=== PATIENT | female | born 1940 | race Caucasian/White ===

== ENCOUNTER 2017-05-30 07:37 | Day surgery (SDC) | payer OTHER, MEDICAID ==
[2017-05-30] MEDS ORDERED: D5 LR 1000 ML 1,000 ML IV ONE (07:41)
[2017-05-30] MEDS ORDERED: XYLOCAINE 2 % (PLAIN) ONE (08:19)
[2017-05-30] MEDS ORDERED: DIPRIVAN VIAL 20 ML ONE (08:19)
[2017-05-30 09:23] VITALS: BP 145/66
--- NOTE | 2017-05-30 09:26 | OR.GENERIC ---
Post-Op Note Generic - Post-Op Note Operative Report: Endoscopy Report May 30, 2017 Pre-Operative Diagnosis: Epigastric pain. Post-Operative Diagnosis: 1. Mild gastritis. 2. Small hiatal hernia. 3. Gastroesophageal reflux disease. Procedure: Esophagogastroduodenoscopy with biopsies (cold biopsy forceps). Surgeon: Chano Culp MD. Home Therapy Clinician: Duran Staley CRNA. Specimen(s): 1. Antrum. 2. GE junction. Estimated blood loss: Minimal. Complications: None. Summary: The patient is a 77 year old female who presented with epigastric pain. The patient was offered esophagogastroduodenoscopy. The risk and benefits of the procedure including difficulty with anesthesia, bleeding, infection, as well as perforation were discussed with the patient. The patient understood these risks and requested the procedure. On May 30, 2017, the patient was brought to the endoscopy suite. A time out was performed verifying the patient and the procedure. A bite block was inserted. After satisfactory induction of monitored anesthesia care, an endoscope was advanced through the oropharynx, slowly through the esophagus, and into the stomach. The stomach was insufflated. Mild gastritis was seen. No ulcers or erosions were seen. The scope was maneuvered into the duodenum. No inflammation, ulcers, or erosions were seen in the duodenum. The scope was brought back into the stomach and retroflexed. A small hiatal hernia was noted. The scope was straightened and then slowly withdrawn into the esophagus. Evidence of mild gastroesophageal reflux disease was seen. Biopsies were taken at the GE junction using cold biopsy forceps and sent to pathology. The scope was brought back into the stomach and insufflation evacuated. The scope was withdrawn and the procedure terminated. The patient was awakened and taken to the recovery room in stable condition. There were no complications.
== END 2017-05-30 09:24 | disposition home or self-care (01) ==
LOC: SURG1 07:37
PROVIDERS: ATTEND Student in an Organized Health Care Education/Training Program
PROC: 0DJ08ZZ Inspection of Upper Intestinal Tract, Via Natural or Artificial Opening Endoscopic (ICD-10-PCS; principal; 2017-05-30 08:30)
PROC: 0DB48ZX Excision of Esophagogastric Junction, Via Natural or Artificial Opening Endoscopic, Diagnostic (ICD-10-PCS; principal; 2017-05-30 08:30)
PROC: 0DB68ZX Excision of Stomach, Via Natural or Artificial Opening Endoscopic, Diagnostic (ICD-10-PCS; principal; 2017-05-30 08:30)
DX: R10.13 Epigastric pain (principal); K29.60 Other gastritis without bleeding; K44.9 Diaphragmatic hernia without obstruction or gangrene; K21.9 Gastro-esophageal reflux disease without esophagitis
CPT/HCPCS: 99100; A4217; J2001; J3490; J7120

== ENCOUNTER 2019-01-26 10:56 | Inpatient (IN) ==
[2019-01-26] MEDS: HEMOCYTE-PLUS PO SCH (21:15)
[2019-01-26] MEDS: COLACE CAP 100 MG PO SCH (21:15)
[2019-01-26] MEDS: MILK OF MAGNESIA PO SCH (21:15)
[2019-01-26] MEDS: ELIQUIS PO SCH (21:17)
[2019-01-27 05:15] VITALS: BMI 23.0
[2019-01-27 06:25] LABS: BASOPHILS % (AUTO) 0.4 % (0.2-1.0); EOSINOPHILS # (AUTO) 0.1 x10^3/uL (0.0-0.2); HEMATOCRIT 30.5 % (36.0-47.0); HEMOGLOBIN 10.4 g/dL (12.0-16.0); LYMPHOCYTES # (AUTO) 2.2 X10^3/uL (1.3-2.9); LYMPHOCYTES % (AUTO) 24.4 % (21.0-51.0); MEAN CORPUSCULAR HEMOGLOBIN 31.9 pg (27.0-34.0); MEAN CORPUSCULAR HGB CONC 34.1 g/dL (33.0-35.0); MEAN CORPUSCULAR VOLUME 93.6 fL (80.0-100.0); MONOCYTES # (AUTO) 0.9 x10^3/uL (0.3-0.8); MONOCYTES % (AUTO) 10.2 % (0.0-13.0); NEUTROPHILS # (AUTO) 5.7 x10^3/uL (2.2-4.8); PLATELET COUNT 233 X10^3/uL (150.0-450.0); RED BLOOD COUNT 3.26 X10^6/uL (3.5-5.4); RED CELL DISTRIBUTION WIDTH 14.6 % (11.6-16.5); WHITE BLOOD COUNT 8.9 X10^3/uL (3.6-10.0)
[2019-01-27 06:42] LABS: ALANINE AMINOTRANSFERASE 8 Units/L (12-78); ALBUMIN 2.1 g/dL (3.4-5.0); ALKALINE PHOSPHATASE 53 Units/L (46-116); ASPARTATE AMINO TRANSFERASE 20 Units/L (15-37); BLOOD UREA NITROGEN 12 mg/dL (7-18); CALCIUM 8.4 mg/dL (8.5-10.1); CARBON DIOXIDE 28.5 mmol/L (21-32); CHLORIDE 101 mmol/L (98-107); COR CA(FOR HYPOALB) 9.9 mg/dL (8.5-10.1); SODIUM 136 mmol/L (136-145); eGFR NON BLACK RACES > 60 (>60)
[2019-01-27] MEDS: HEMOCYTE-PLUS PO SCH ×2 (09:31→20:46)
[2019-01-27] MEDS: COLACE CAP 100 MG PO SCH ×2 (09:31→20:46)
[2019-01-27] MEDS: ELIQUIS PO SCH ×2 (09:32→20:46)
[2019-01-27] MEDS: MILK OF MAGNESIA PO SCH ×2 (09:32→20:47)
[2019-01-27] MEDS: COZAAR PO SCH (14:31)
--- NOTE | 2019-01-27 16:12 | PT/OTEVAL ---
PT/OT OBJECTIVES - HISTORY Prescription: PT Evaluation Diagnosis: S/P L FRANCESCA Precautions: TTWB to LLE, no adduction to hip per MD, fall risk PMH: PMHX includes the following but are not limited to: S/P L FRANCESCA revision, OA, HTN, GERD without esophagitis, chronic constipation, Hx of syncope Prior Level of Function: Independent - COGNITION Mental Status: Alert, Oriented, Name, Place Communication Status: Verbal Ability to Follow Directions: 3 Step - PAIN Right Shoulder Pain Scale: Moderate (5-6) - BED MOBILITY Rolling: Independent Scooting: Independent Bridging: Independent - TRANSFERS Supine to Sit: Independent Sit to Stand: Moderate Safety (requires cues for:): Weight Bearing Precaution, Hip Precautions Safety Comment: TTWB to LLE, no hip adduction per MD, fall risk - BALANCE Dynamic Sitting: Good Standing: Fair Static Sitting: Good Standing: Fair - NEUROMOTOR/SENSATION Fred. Upper Ext Sensation: WFL Coordination: WFL Fred. Lower Ext Sensation: WFL Coordination: WFL Proprioception: WFL - ROM Bilateral LE ROM: WFL Muscle Tone: WFL - STRENGTH Bilateral LE Strength Number: 3 Other comment: 3/5 -> 3+/5 grossly graded Bilateral UE Strength Number: 3 Other comment: 3-/5 - GAIT Pt. ambulates how many feet?: 30 (using a FWW) Amount of assistance required: Moderate Amount of Assistance Required: Moderate Type of Assistive Device: Rolling Walker PT/OT ASSESSMENT - PT Problem List: Decreased Bed Mobility, Decreased Transfers, Decreased Gait, Decreased Balance, Decreased Safety, Decreased LE Strength - PT GOALS Short Term Goals Days: 10x Transfers: pt. will require Supv./Touch A in sit <-> stand and bed <-> Chair transfers Gait: pt. will walk for > 20 ft. in Supv./Touch A using a FWW and TTWB to LLE Balance: pt. will increase standing balance to G-/F+ (S/D) ROM/Strength: pt. will increase BLE muscle strength to 4-/5 -> 4/5 grossly graded. Nursing Home Goals Days: 20x Transfers: pt. will be Independent in sit <-> stand and bed <-> Chair transfers Gait: pt. will walk for > 40 ft. I -> set/clean-up A using FWW, TTWB LLE Balance: pt. will increase standing balance to G/G- (S/D) ROM/Strength: pt. will increase BLE muscle strength to 4/5 -> 4+/5 grossly graded. - PATIENT GOALS Patient/Family Goals: to be Independent and return to PLOF Goals Discussed with Patient/Family: Yes Rehabilitation Potential: good Justification for Potential: Independent in PLOF Weakness and Barriers: None - PLAN Suggested Treatment Plan: Therapeutic Activity, Gait Training, Neuro Re- education, Therapeutic Ex with HEP, Patient Education - FREQUENCY AND DURATION PT: 6x./wk. x hospital stay Expected Continuation of Care at Discharge: Determined on Progress Anticipated Equipment Needs: FWW
--- NOTE | 2019-01-27 18:52 | PT/OTEVAL ---
PT/OT OBJECTIVES - HISTORY Prescription: OT consult Diagnosis: s/p L FRANCESCA Precautions: TDWB, hip precautions PMH: PMHx: HTN. Per pt's report L hip repair. Prior Level of Function: Independent Other, comment: Pt reported being independent in all areas of self care tasks, transfers. Other: Pt reported living alone, and is independent in all areas of self care tasks, trasnfers and functional mobility using rollator. Pt performs own laundry, cooks her own meals. Per pt, she had issues with balance causing falls even in the past. Pt has an elevated toilet seat, RW and transport chair at home. Pt has 4 steps and moses with bilateral hand rails as primary access to home. Pt had a fall resulting to L hip fx. - COGNITION Mental Status: Alert, Oriented, Name, Date, Place, Purpose Communication Status: Verbal Ability to Follow Directions: 3 Step Memory Loss: None - PAIN Right Shoulder Pain Scale: Moderate (5-6) Left Hip Pain Scale: Severe (7-8) Comments: when in standing/during transitions - TRANSFERS Supine to Sit: Not Tested Sit to Stand: Minimal Sit or Stand Pivot: Minimal Safety (requires cues for:): Weight Bearing Precaution, Hip Precautions, Hand Placement Precaution Safety Comment: Pt requires max verbal cues to observe TDWB precautions on LLE. - ADL'S Feeding: Setup Grooming: Minimum Upper Body ADL: Minimum Lower Body ADL: Maximum Toileting: Maximum Toileting Comment: max A with perineal hygiene, min A with transfers - BALANCE Dynamic Sitting: Good Standing: Fair Static Sitting: Good Standing: Fair - NEUROMOTOR/SENSATION Fred. Upper Ext Sensation: WFL Coordination: WFL Proprioception: WFL Fred. Lower Ext Sensation: WFL Coordination: WFL Proprioception: WFL - HAND DOMINANCE Extremity Function: Hand Dominance: Right - ROM Bilateral UE ROM: Impaired Comment: impaired on R shoulder - STRENGTH Bilateral UE Strength Number: 3 Other comment: 3-/5 on RUE; 3/5 on LUE Bilateral LE Strength Number: 3 Other comment: 3/5 -> 3+/5 grossly graded PT/OT ASSESSMENT - OT Problem List: Decreased Mobility ADL's, Decreased Safety Aware, Decreased Dressing, Decreased Bathing, Decreased Grooming, Decreased UE Strength, Other Other, comment: decreased toileting, decreased FAT - PT GOALS Short Term Goals Days: 10x Transfers: pt. will require Supv./Touch A in sit <-> stand and bed <-> Chair transfers Gait: pt. will walk for > 20 ft. in Supv./Touch A using a FWW and TTWB to LLE Balance: pt. will increase standing balance to G-/F+ (S/D) ROM/Strength: pt. will increase BLE muscle strength to 4-/5 -> 4/5 grossly graded. [facility] Goals Days: 20x Transfers: pt. will be Independent in sit <-> stand and bed <-> Chair transfers Gait: pt. will walk for > 40 ft. I -> set/clean-up A using FWW, TTWB LLE Balance: pt. will increase standing balance to G/G- (S/D) ROM/Strength: pt. will increase BLE muscle strength to 4/5 -> 4+/5 grossly graded. - OT GOALS Short Term Goals Days: 10 days Mobility for ADL's: Pt will perform toileting tasks with supv using AD and 100% adherence to WB Safety Awareness: Pt will be educated with TDWB prec and hip precautions on LLE. Dressing: Pt will perform UB/LB dressing with supv using AD/AEs as needed. Bathing: Pt will perform UB/LB bathing with supv using AD/AEs as needed. Grooming: Pt will perform grooming/oral hyiene with supv at sink level. Upper Ext. Strength/Use: Pt will improve strength to 3+/5 on BUEs. Other: Pt will demo F FAT during ADLs/transfers. Appeals Specialist Goals Days: 20 days Mobility for ADL's: Pt will perform toileting tasks I using AD and 100% adherence to WB Safety Awareness: Pt will demo 100% carryover of TDWB prec and hip precautions on LLE c ADLs. Dressing: Pt will perform UB/LB dressing I using AD/AEs as needed. Bathing: Pt will perform UB/LB bathing I using AD/AEs as needed. Grooming: Pt will perform grooming/oral hyiene I at sink level. Upper Ext. Strength/Use: Pt will improve strength to +/5 on BUEs. Other: Pt will demo G FAT during ADLs/transfers. - PATIENT GOALS Patient/Family Goals: To improve strength for increased I participation with ADLs/transfers. Goals Discussed with Patient/Family: Yes Rehabilitation Potential: Good Justification for Potential: High PLOF, good motivation/participation, G family/CG support. Weakness and Barriers: Pain - PLAN Suggested Treatment Plan: Therapeutic Activity, Self Care Training, Therapeutic Ex with HEP, Patient Education - FREQUENCY AND DURATION OT: 5x/wk for 10 days Expected Continuation of Care at Discharge: Determined on Progress
[2019-01-27] MEDS: LIPITOR TAB 40 MG PO SCH (20:46)
[2019-01-28] MEDS: TYLENOL 325 MG TAB PO PRN (01:52)
[2019-01-28] MEDS: ELIQUIS PO SCH ×2 (09:16→21:44)
[2019-01-28] MEDS: MILK OF MAGNESIA PO SCH ×2 (09:16→21:48)
[2019-01-28] MEDS: COLACE CAP 100 MG PO SCH ×2 (09:18→21:43)
[2019-01-28] MEDS: COZAAR PO SCH (09:18)
[2019-01-28] MEDS: HEMOCYTE-PLUS PO SCH ×2 (09:19→21:43)
[2019-01-28] MEDS ORDERED: ZOFRAN TAB 4 MG PO PRN (14:44)
[2019-01-28] MEDS: LIPITOR TAB 40 MG PO SCH (21:43)
[2019-01-29] MEDS: TYLENOL 325 MG TAB PO PRN ×2 (02:50→15:26)
[2019-01-29] MEDS: COZAAR PO SCH (08:33)
[2019-01-29] MEDS: ELIQUIS PO SCH ×2 (08:35→22:04)
[2019-01-29] MEDS: COLACE CAP 100 MG PO SCH ×2 (08:35→22:05)
[2019-01-29] MEDS: HEMOCYTE-PLUS PO SCH ×2 (08:35→22:03)
[2019-01-29] MEDS: MILK OF MAGNESIA PO SCH ×2 (08:37→22:05)
[2019-01-29 14:31] LABS: BASOPHILS % (AUTO) 0.4 % (0.2-1.0); EOSINOPHILS # (AUTO) 0.2 x10^3/uL (0.0-0.2); EOSINOPHILS % (AUTO) 2.2 % (0.9-2.9); HEMATOCRIT 31.2 % (36.0-47.0); HEMOGLOBIN 10.6 g/dL (12.0-16.0); LYMPHOCYTES # (AUTO) 1.4 X10^3/uL (1.3-2.9); LYMPHOCYTES % (AUTO) 14.4 % (21.0-51.0); MEAN CORPUSCULAR HEMOGLOBIN 32.1 pg (27.0-34.0); MEAN CORPUSCULAR VOLUME 94.3 fL (80.0-100.0); MONOCYTES # (AUTO) 1.1 x10^3/uL (0.3-0.8); MONOCYTES % (AUTO) 11.3 % (0.0-13.0); NEUTROPHILS % (AUTO) 71.7 % (42.0-75.0); PLATELET COUNT 349 X10^3/uL (150.0-450.0); RED BLOOD COUNT 3.31 X10^6/uL (3.5-5.4); RED CELL DISTRIBUTION WIDTH 14.5 % (11.6-16.5); WHITE BLOOD COUNT 9.8 X10^3/uL (3.6-10.0)
[2019-01-29 14:41] LABS: ALANINE AMINOTRANSFERASE 9 Units/L (12-78); ALBUMIN 2.3 g/dL (3.4-5.0); ALKALINE PHOSPHATASE 58 Units/L (46-116); ASPARTATE AMINO TRANSFERASE 16 Units/L (15-37); BLOOD UREA NITROGEN 20 mg/dL (7-18); CALCIUM 8.5 mg/dL (8.5-10.1); CARBON DIOXIDE 29.2 mmol/L (21-32); CHLORIDE 99 mmol/L (98-107); COR CA(FOR HYPOALB) 9.9 mg/dL (8.5-10.1); COR NA(FOR HYPERGLY) 135 mmol/L (136-145); CREATININE 0.79 mg/dL (0.55-1.02); SODIUM 135 mmol/L (136-145); TOTAL PROTEIN 6.7 g/dL (6.4-8.2); eGFR NON BLACK RACES > 60 (>60)
--- NOTE | 2019-01-29 21:42 | DR.UPDATE ---
H&P Update History and Physical Update: History and Physical reviewed and patient examined. Changes noted: Yes with the following: IS A 78 YEAR OLD PATIENT OF OURS WHO HAS RECENTLY UNDERGONE A REVISION OF LEFT TOTAL HIP ARTHROPLASTY DUE TO A FALL. SURGICAL PROCEDURE WAS PERFORMED AT [facility] BY ON 01/22/19. SHE WAS TRANSFERRED HER FOR SWINGBED STATUS FOR PHYSICAL THERAPY. PAST MEDICAL HISTORY INCLUDES HYPERLIPIDEMIA, HTN, GERD, ANEMIA, CHOLECYSTECTOMY, AND JOINT REPLACEMENT. THE DAY PRIOR TO TRANSFER, SHE RECEIVED TWO UNITS OF PACKED RED BLOOD CELLS DUE TO ANEMIA. ON ARRIVAL, SHE IS ALERT AND ORIENTED. SHE REPORTS MILD LEFT HIP PAIN. ON ARRIVAL, VITALS WERE 97.9-91-18-95%-196/82. THERE ARE LUIS NOTED TO BE INTACT TO THE LEFT HIP. NO SIGNS OR SX INFECTION NOTED. SHE REQUIRES MINIMAL ASSISTANCE WITH ADLs. ORTHOPEDIC SURGEON ORDERED TOUCH DOWN WEIGHT BEARING. ON ADMISSION, HER HOME MEDS WERE RESTARTED, WHICH INCLUDES OXYCODONE 10MG PO Q12HR FOR PAIN RELIEF AND ELIQUIS 2.5MG PO BID. WE WILL OBTAIN AM LABS AND HAVE PHYSICAL THERAPY EVALUATE PATIENT. OTHERWISE, WE WILL CONTINUE TO MONITOR.
--- NOTE | 2019-01-29 22:01 | PCM.PROG ---
Progress Note - Progress Note for Day of Date of Exam: 01/29/19 - Subjective Subjective: IS SWINGBED STATUS FOR PHYSICAL THERAPY DUE TO REVISION OF LEFT TOTAL HIP ARTHROPLASTY. TODAY, SHE IS ALERT AND ORIENTED, LYING IN BED ON MORNING ROUNDS. SHE DENIES COMPLAINTS THIS MORNING. ON EXAMINATION, HEART IS REGULAR IN RATE AND RHYTHM. BILATERAL LUNGS ARE NOTED WITH DIMINISHED LUNG SOUNDS THROUGHOUT. ABDOMEN IS ROUND, SOFT, AND NON-TENDER WITH NORMAL BOWEL SOUNDS NOTED IN ALL QUADRANTS. THERE IS A DRESSING NOTED TO LEFT HIP. DRESSING IS DRY AND INTACT WITH NO SIGNS OR SX INFECTION NOTED. HER VITALS THIS MORNING ARE: 97.8-70-18-97%-130/61. LABS WERE OBTAINED. ABNORMAL LAB VALUES INCLUDE THE FOLLOWING: RBC 3.31, HGB 10.6, HCT 31.2, SODIUM 135, BUN 20, GLUCOSE 119, TOTAL BILI 1.10, ALT 9, ALBUMIN 2.3. PHYSICAL THERAPY REPORTS THAT PATIENT IS AMBULATING WELL WITH WALKER AND ONE PERSON ASSISTANCE. WE WILL CONTINUE WITH THERAPY AND CURRENT PLAN OF CARE TODAY. OTHERWISE, WE WILL FOLLOW UP WITH AM LABS AND CONTINUE TO MONITOR. - Past Medical Family Social History Past Med/Fam/Surg Hx: No changes since H&P Allergies: Allergies No Known Allergies Allergy (Verified 12/06/18 09:29) - Review of Systems ROS: No change since H&P - Vital Signs and I&O's Vital Signs: Temperature 97.8 F Pulse Rate [Apical] 70 Pulse Rate 85 Respiratory Rate 18 Blood Pressure [Right Arm] 123/58 Blood Pressure [Left Arm] 130/61 Blood Pressure 182/76 O2 Sat by Pulse Oximetry 97 Intake and Output: Intake & Output 01/27/19 01/28/19 01/29/19 01/30/19 11:59 11:59 11:59 11:59 Intake Total 1100 / 1100 1460 / 1460 1620 / 1620 620 / 620 Balance 1100 / 1100 1460 / 1460 1620 / 1620 620 / 620 - Physical Exam Oriented: Normal Eyes: Normal Ear: Normal Nose: Normal Throat: Normal Respiratory: Generalized, Diminished Cardiovascular: Normal : Normal Auscultation: Bowel Sounds: Normal Palpation: Normal Tenderness: Normal Skin: Wound (LEFT HIP SURGICAL WOUND ) Musculoskeletal: Left, Hip, Leg, Swelling, Tender Psychiatric: Normal Mood Description: Calm Affect: Normal Speech Pattern: Clear, Appropriate - Laboratory and Diagnostics Result Diagrams: 01/29/19 14:20 01/29/19 14:20 Labs: Laboratory WBC 9.8 X10^3/uL (3.6-10.0) 01/29/19 14:20 RBC 3.31 X10^6/uL (3.5-5.4) L 01/29/19 14:20 Hgb 10.6 g/dL (12.0-16.0) L 01/29/19 14:20 Hct 31.2 % (36.0-47.0) L 01/29/19 14:20 MCV 94.3 fL (80.0-100.0) 01/29/19 14:20 MCH 32.1 pg (27.0-34.0) 01/29/19 14:20 MCHC 34.0 g/dL (33.0-35.0) 01/29/19 14:20 RDW 14.5 % (11.6-16.5) 01/29/19 14:20 Plt Count 349 X10^3/uL (150.0-450.0) 01/29/19 14:20 MPV 7.0 fL (7.4-11.0) L 01/29/19 14:20 Neut % (Auto) 71.7 % (42.0-75.0) 01/29/19 14:20 Lymph % (Auto) 14.4 % (21.0-51.0) L 01/29/19 14:20 [place] % (Auto) 11.3 % (0.0-13.0) 01/29/19 14:20 Eos % (Auto) 2.2 % (0.9-2.9) 01/29/19 14:20 Baso % (Auto) 0.4 % (0.2-1.0) 01/29/19 14:20 Neut # (Auto) 7.0 x10^3/uL (2.2-4.8) H 01/29/19 14:20 Lymph # (Auto) 1.4 X10^3/uL (1.3-2.9) 01/29/19 14:20 [place] # (Auto) 1.1 x10^3/uL (0.3-0.8) H 01/29/19 14:20 Eos # (Auto) 0.2 x10^3/uL (0.0-0.2) 01/29/19 14:20 Baso # (Auto) 0.0 X10^3/uL (0.0-0.1) 01/29/19 14:20 Absolute Nucleated RBC 0.0 /100WBC 01/29/19 14:20 Sodium 135 mmol/L (136-145) L 01/29/19 14:20 Corrected Sodium 135 mmol/L (136-145) L 01/29/19 14:20 Potassium 4.4 mmol/L (3.5-5.1) 01/29/19 14:20 Chloride 99 mmol/L (98-107) 01/29/19 14:20 Carbon Dioxide 29.2 mmol/L (21-32) 01/29/19 14:20 BUN 20 mg/dL (7-18) H 01/29/19 14:20 Creatinine 0.79 mg/dL (0.55-1.02) 01/29/19 14:20 Est GFR (MDRD) Af Amer > 60 (>60) 01/29/19 14:20 Est GFR (MDRD) Non-Af > 60 (>60) 01/29/19 14:20 Glucose 119 mg/dL (65-99) H 01/29/19 14:20 Calcium 8.5 mg/dL (8.5-10.1) 01/29/19 14:20 Corrected Calcium 9.9 mg/dL (8.5-10.1) 01/29/19 14:20 Total Bilirubin 1.10 mg/dL (0.2-1.0) H 01/29/19 14:20 AST 16 Units/L (15-37) 01/29/19 14:20 ALT 9 Units/L (12-78) L 01/29/19 14:20 Alkaline Phosphatase 58 Units/L (46-116) 01/29/19 14:20 Total Protein 6.7 g/dL (6.4-8.2) 01/29/19 14:20 Albumin 2.3 g/dL (3.4-5.0) L 01/29/19 14:20 Globulin 4.4 g/dL (2.5-4.5) 01/29/19 14:20 Albumin/Globulin Ratio 0.5 Ratio (1.1-2.1) L 01/29/19 14:20 - Plan (1) Status post revision of total hip Status: Acute Plan: PHYSICAL THERAPY, PAIN CONTROL, WOUND CARE, CONTINUE HOME MEDS, CONTINUE TO MONITOR
[2019-01-29] MEDS: LIPITOR TAB 40 MG PO SCH (22:04)
[2019-01-30] MEDS: ELIQUIS PO SCH ×2 (08:54→21:35)
[2019-01-30] MEDS: COZAAR PO SCH (08:54)
[2019-01-30] MEDS: MILK OF MAGNESIA PO SCH ×3 (08:54→21:38)
[2019-01-30] MEDS: COLACE CAP 100 MG PO SCH ×2 (08:54→21:35)
[2019-01-30] MEDS: HEMOCYTE-PLUS PO SCH ×2 (08:54→21:35)
[2019-01-30] MEDS: LIPITOR TAB 40 MG PO SCH (21:36)
[2019-01-31] MEDS: HEMOCYTE-PLUS PO SCH ×2 (08:51→21:13)
[2019-01-31] MEDS: COLACE CAP 100 MG PO SCH ×2 (08:51→21:13)
[2019-01-31] MEDS: ELIQUIS PO SCH ×2 (08:52→21:13)
[2019-01-31] MEDS: MILK OF MAGNESIA PO SCH ×2 (09:11→21:14)
[2019-01-31] MEDS: COZAAR PO SCH (09:11)
[2019-01-31] MEDS: TYLENOL 325 MG TAB PO PRN (12:15)
[2019-01-31] MEDS: LIPITOR TAB 40 MG PO SCH (21:13)
[2019-01-31] MEDS ORDERED: MAALOX or MYLANTA PO PRN (22:24)
[2019-02-01 05:34] LABS: BASOPHILS # (AUTO) 0.1 X10^3/uL (0.0-0.1); BASOPHILS % (AUTO) 0.7 % (0.2-1.0); EOSINOPHILS # (AUTO) 0.2 x10^3/uL (0.0-0.2); HEMATOCRIT 28.6 % (36.0-47.0); HEMOGLOBIN 9.8 g/dL (12.0-16.0); LYMPHOCYTES # (AUTO) 1.7 X10^3/uL (1.3-2.9); LYMPHOCYTES % (AUTO) 20.2 % (21.0-51.0); MEAN CORPUSCULAR HEMOGLOBIN 32.3 pg (27.0-34.0); MEAN CORPUSCULAR HGB CONC 34.1 g/dL (33.0-35.0); MEAN CORPUSCULAR VOLUME 94.8 fL (80.0-100.0); MEAN PLATELET VOLUME 7.4 fL (7.4-11.0); MONOCYTES % (AUTO) 11.7 % (0.0-13.0); NEUTROPHILS # (AUTO) 5.5 x10^3/uL (2.2-4.8); NEUTROPHILS % (AUTO) 65.4 % (42.0-75.0); PLATELET COUNT 460 X10^3/uL (150.0-450.0); RED BLOOD COUNT 3.02 X10^6/uL (3.5-5.4); RED CELL DISTRIBUTION WIDTH 13.7 % (11.6-16.5); WHITE BLOOD COUNT 8.3 X10^3/uL (3.6-10.0)
[2019-02-01 05:47] LABS: ALANINE AMINOTRANSFERASE 10 Units/L (12-78); ALBUMIN 2.1 g/dL (3.4-5.0); ALKALINE PHOSPHATASE 53 Units/L (46-116); ASPARTATE AMINO TRANSFERASE 19 Units/L (15-37); BLOOD UREA NITROGEN 18 mg/dL (7-18); CALCIUM 8.4 mg/dL (8.5-10.1); CARBON DIOXIDE 28.9 mmol/L (21-32); CHLORIDE 101 mmol/L (98-107); COR CA(FOR HYPOALB) 9.9 mg/dL (8.5-10.1); CREATININE 0.67 mg/dL (0.55-1.02); SODIUM 137 mmol/L (136-145); eGFR NON BLACK RACES > 60 (>60)
[2019-02-01] MEDS: ELIQUIS PO SCH ×2 (09:30→22:01)
[2019-02-01] MEDS: COZAAR PO SCH (09:30)
[2019-02-01] MEDS: COLACE CAP 100 MG PO SCH ×2 (10:24→22:01)
[2019-02-01] MEDS: HEMOCYTE-PLUS PO SCH ×2 (10:24→22:02)
[2019-02-01] MEDS: MILK OF MAGNESIA PO SCH ×2 (10:27→22:03)
[2019-02-01] MEDS: LIPITOR TAB 40 MG PO SCH (22:01)
[2019-02-02] MEDS: HEMOCYTE-PLUS PO SCH ×2 (09:57→21:47)
[2019-02-02] MEDS: ELIQUIS PO SCH ×2 (09:57→21:47)
[2019-02-02] MEDS: COZAAR PO SCH (09:57)
[2019-02-02] MEDS: COLACE CAP 100 MG PO SCH ×2 (09:57→21:47)
[2019-02-02] MEDS: MILK OF MAGNESIA PO SCH ×3 (09:58→21:49)
--- NOTE | 2019-02-02 14:09 | PCM.PROG ---
Progress Note - Progress Note for Day of Date of Exam: 02/01/19 - Subjective Subjective: IS SWINGBED STATUS FOR PHYSICAL THERAPY DUE TO REVISION OF LEFT TOTAL HIP ARTHROPLASTY. TODAY, SHE IS ALERT AND ORIENTED, LYING IN BED ON MORNING ROUNDS. STAFF REPORTS THAT SHE IS AMBULATING WELL WITH ONE PERSON ASSISTANCE. SHE DENIES COMPLAINTS THIS MORNING. ON EXAMINATION, HEART IS REGULAR IN RATE AND RHYTHM. BILATERAL LUNGS ARE NOTED WITH DIMINISHED LUNG SOUNDS THROUGHOUT. ABDOMEN IS ROUND, SOFT, AND NON-TENDER WITH NORMAL BOWEL SOUNDS NOTED IN ALL QUADRANTS. THERE IS A DRESSING NOTED TO LEFT HIP. DRESSING IS DRY AND INTACT WITH NO SIGNS OR SX INFECTION NOTED. HER VITALS THIS MORNING ARE: 97.8-89-18-96%-147/65. LABS WERE OBTAINED. ABNORMAL LAB VALUES INCLUDE THE FOLLOWING: RBC 3.31, HGB 10.6, HCT 31.2, SODIUM 135, BUN 20, GLUCOSE 119, TOTAL BILI 1.10, ALT 9, ALBUMIN 2.3. WE WILL CONTINUE WITH THERAPY AND CURRENT PLAN OF CARE TODAY. OTHERWISE, WE WILL FOLLOW UP WITH AM LABS AND CONTINUE TO MONITOR. - Past Medical Family Social History Past Med/Fam/Surg Hx: No changes since H&P Allergies: Allergies No Known Allergies Allergy (Verified 12/06/18 09:29) - Review of Systems ROS: No change since H&P - Vital Signs and I&O's Vital Signs: Temperature 97.7 F Pulse Rate [Apical] 84 Pulse Rate 85 Respiratory Rate 14 Blood Pressure [Right Arm] 131/58 Blood Pressure [Left Arm] 119/57 Blood Pressure 182/76 O2 Sat by Pulse Oximetry 94 Intake and Output: Intake & Output 01/31/19 02/01/19 02/02/19 02/03/19 11:59 11:59 11:59 11:59 Intake Total 1200 / 1200 1260 / 1260 970 / 970 Balance 1200 / 1200 1260 / 1260 970 / 970 - Physical Exam Oriented: Normal Eyes: Normal Ear: Normal Nose: Normal Throat: Normal Respiratory: Generalized, Diminished Cardiovascular: Normal : Normal Auscultation: Bowel Sounds: Normal Palpation: Normal Tenderness: Normal Skin: Wound (LEFT HIP SURGICAL WOUND ) Musculoskeletal: Left, Hip, Leg, Swelling, Tender Psychiatric: Normal Mood Description: Calm Affect: Normal Speech Pattern: Clear, Appropriate - Laboratory and Diagnostics Result Diagrams: 02/01/19 04:45 08/10/19 04:45 Labs: Laboratory WBC 8.3 X10^3/uL (3.6-10.0) 02/01/19 04:45 RBC 3.02 X10^6/uL (3.5-5.4) L 02/01/19 04:45 Hgb 9.8 g/dL (12.0-16.0) L 02/01/19 04:45 Hct 28.6 % (36.0-47.0) L 02/01/19 04:45 MCV 94.8 fL (80.0-100.0) 02/01/19 04:45 MCH 32.3 pg (27.0-34.0) 02/01/19 04:45 MCHC 34.1 g/dL (33.0-35.0) 02/01/19 04:45 RDW 13.7 % (11.6-16.5) 02/01/19 04:45 Plt Count 460 X10^3/uL (150.0-450.0) H 02/01/19 04:45 MPV 7.4 fL (7.4-11.0) 02/01/19 04:45 Neut % (Auto) 65.4 % (42.0-75.0) 02/01/19 04:45 Lymph % (Auto) 20.2 % (21.0-51.0) L 02/01/19 04:45 [place] % (Auto) 11.7 % (0.0-13.0) 02/01/19 04:45 Eos % (Auto) 2.0 % (0.9-2.9) 02/01/19 04:45 Baso % (Auto) 0.7 % (0.2-1.0) 02/01/19 04:45 Neut # (Auto) 5.5 x10^3/uL (2.2-4.8) H 02/01/19 04:45 Lymph # (Auto) 1.7 X10^3/uL (1.3-2.9) 02/01/19 04:45 [place] # (Auto) 1.0 x10^3/uL (0.3-0.8) H 02/01/19 04:45 Eos # (Auto) 0.2 x10^3/uL (0.0-0.2) 02/01/19 04:45 Baso # (Auto) 0.1 X10^3/uL (0.0-0.1) 02/01/19 04:45 Absolute Nucleated RBC 0.0 /100WBC 02/01/19 04:45 Sodium 137 mmol/L (136-145) 02/01/19 04:45 Corrected Sodium TNP 02/01/19 04:45 Potassium 4.3 mmol/L (3.5-5.1) 02/01/19 04:45 Chloride 101 mmol/L (98-107) 02/01/19 04:45 Carbon Dioxide 28.9 mmol/L (21-32) 02/01/19 04:45 BUN 18 mg/dL (7-18) 02/01/19 04:45 Creatinine 0.67 mg/dL (0.55-1.02) 02/01/19 04:45 Est GFR (MDRD) Af Amer > 60 (>60) 02/01/19 04:45 Est GFR (MDRD) Non-Af > 60 (>60) 02/01/19 04:45 Glucose 100 mg/dL (65-99) H 02/01/19 04:45 Calcium 8.4 mg/dL (8.5-10.1) L 02/01/19 04:45 Corrected Calcium 9.9 mg/dL (8.5-10.1) 02/01/19 04:45 Total Bilirubin 0.90 mg/dL (0.2-1.0) 02/01/19 04:45 AST 19 Units/L (15-37) 02/01/19 04:45 ALT 10 Units/L (12-78) L 02/01/19 04:45 Alkaline Phosphatase 53 Units/L (46-116) 02/01/19 04:45 Total Protein 6.0 g/dL (6.4-8.2) L 02/01/19 04:45 Albumin 2.1 g/dL (3.4-5.0) L 02/01/19 04:45 Globulin 3.9 g/dL (2.5-4.5) 02/01/19 04:45 Albumin/Globulin Ratio 0.5 Ratio (1.1-2.1) L 02/01/19 04:45 - Plan (1) Status post revision of total hip Status: Acute Plan: PHYSICAL THERAPY, PAIN CONTROL, WOUND CARE, CONTINUE HOME MEDS, CONTINUE TO MONITOR
[2019-02-02] MEDS: LIPITOR TAB 40 MG PO SCH (21:46)
[2019-02-03] MEDS: HEMOCYTE-PLUS PO SCH ×2 (09:09→21:33)
[2019-02-03] MEDS: COLACE CAP 100 MG PO SCH ×2 (09:09→21:32)
[2019-02-03] MEDS: MILK OF MAGNESIA PO SCH ×2 (09:10→21:33)
[2019-02-03] MEDS: ELIQUIS PO SCH ×2 (09:10→21:32)
[2019-02-03] MEDS: COZAAR PO SCH (09:10)
[2019-02-03] MEDS: LIPITOR TAB 40 MG PO SCH (21:33)
[2019-02-04 05:43] LABS: BASOPHILS # (AUTO) 0.1 X10^3/uL (0.0-0.1); BASOPHILS % (AUTO) 0.8 % (0.2-1.0); EOSINOPHILS # (AUTO) 0.2 x10^3/uL (0.0-0.2); EOSINOPHILS % (AUTO) 2.9 % (0.9-2.9); HEMATOCRIT 28.1 % (36.0-47.0); HEMOGLOBIN 9.7 g/dL (12.0-16.0); LYMPHOCYTES # (AUTO) 1.7 X10^3/uL (1.3-2.9); LYMPHOCYTES % (AUTO) 22.1 % (21.0-51.0); MEAN CORPUSCULAR HEMOGLOBIN 32.6 pg (27.0-34.0); MEAN CORPUSCULAR HGB CONC 34.6 g/dL (33.0-35.0); MEAN CORPUSCULAR VOLUME 94.2 fL (80.0-100.0); MEAN PLATELET VOLUME 6.8 fL (7.4-11.0); MONOCYTES # (AUTO) 0.8 x10^3/uL (0.3-0.8); NEUTROPHILS % (AUTO) 64.2 % (42.0-75.0); PLATELET COUNT 531 X10^3/uL (150.0-450.0); RED BLOOD COUNT 2.98 X10^6/uL (3.5-5.4); RED CELL DISTRIBUTION WIDTH 14.1 % (11.6-16.5); WHITE BLOOD COUNT 7.8 X10^3/uL (3.6-10.0)
[2019-02-04 06:08] LABS: ALANINE AMINOTRANSFERASE 11 Units/L (12-78); ALBUMIN 2.2 g/dL (3.4-5.0); ALKALINE PHOSPHATASE 61 Units/L (46-116); ASPARTATE AMINO TRANSFERASE 21 Units/L (15-37); BLOOD UREA NITROGEN 17 mg/dL (7-18); CALCIUM 8.4 mg/dL (8.5-10.1); CARBON DIOXIDE 29.9 mmol/L (21-32); CHLORIDE 102 mmol/L (98-107); COR CA(FOR HYPOALB) 9.8 mg/dL (8.5-10.1); CREATININE 0.67 mg/dL (0.55-1.02); SODIUM 137 mmol/L (136-145); eGFR NON BLACK RACES > 60 (>60)
[2019-02-04] MEDS: COZAAR PO SCH (09:24)
[2019-02-04] MEDS: COLACE CAP 100 MG PO SCH ×2 (09:24→21:09)
[2019-02-04] MEDS: HEMOCYTE-PLUS PO SCH ×2 (09:24→21:08)
[2019-02-04] MEDS: ELIQUIS PO SCH ×2 (09:24→21:08)
[2019-02-04] MEDS: MILK OF MAGNESIA PO SCH ×2 (09:25→21:08)
--- NOTE | 2019-02-04 18:15 | PCM.PROG ---
Progress Note - Progress Note for Day of Date of Exam: 02/04/19 - Subjective Subjective: IS SWINGBED STATUS FOR PHYSICAL THERAPY DUE TO REVISION OF LEFT TOTAL HIP ARTHROPLASTY. TODAY, SHE IS ALERT AND ORIENTED, LYING IN BED ON MORNING ROUNDS. STAFF REPORTS THAT SHE IS AMBULATING WELL WITH ONE PERSON ASSISTANCE. SHE DENIES COMPLAINTS THIS MORNING. ON EXAMINATION, HEART IS REGULAR IN RATE AND RHYTHM. BILATERAL LUNGS ARE NOTED WITH DIMINISHED LUNG SOUNDS THROUGHOUT. ABDOMEN IS ROUND, SOFT, AND NON-TENDER WITH NORMAL BOWEL SOUNDS NOTED IN ALL QUADRANTS. THERE IS A DRESSING NOTED TO LEFT HIP. DRESSING IS DRY AND INTACT WITH NO SIGNS OR SX INFECTION NOTED. HER VITALS THIS MORNING ARE: 98.3-87-18-95%-125/60. LABS WERE OBTAINED. ABNORMAL LAB VALUES INCLUDE THE FOLLOWING: RBC 2.98, HGB 9.7, HCT 28.1, PLT COUNT 531, CALCIUM 8.4, ALT 11, TOTAL PROTEIN 6.0, ALBUMIN 2.2. WE WILL CONTINUE WITH THERAPY AND CURRENT PLAN OF CARE TODAY. OTHERWISE, WE WILL FOLLOW UP WITH AM LABS AND CONTINUE TO MONITOR. - Past Medical Family Social History Past Med/Fam/Surg Hx: No changes since H&P Allergies: Allergies No Known Allergies Allergy (Verified 12/06/18 09:29) - Review of Systems ROS: No change since H&P - Vital Signs and I&O's Vital Signs: Temperature 98.3 F Pulse Rate [Left Brachial] 87 Pulse Rate [Apical] 92 Pulse Rate 85 Respiratory Rate 20 Blood Pressure [Right Arm] 131/58 Blood Pressure [Left Arm] 125/60 Blood Pressure 182/76 O2 Sat by Pulse Oximetry 95 Intake and Output: Intake & Output 02/02/19 02/03/19 02/04/19 02/05/19 11:59 11:59 11:59 11:59 Intake Total 970 / 970 830 / 830 1540 / 1540 820 / 820 Balance 970 / 970 830 / 830 1540 / 1540 820 / 820 - Physical Exam Oriented: Normal Eyes: Normal Ear: Normal Nose: Normal Throat: Normal Respiratory: Generalized, Diminished Cardiovascular: Normal : Normal Auscultation: Bowel Sounds: Normal Palpation: Normal Tenderness: Normal Skin: Wound (LEFT HIP SURGICAL WOUND ) Musculoskeletal: Left, Hip, Leg, Swelling, Tender Psychiatric: Normal Mood Description: Calm Affect: Normal Speech Pattern: Clear, Appropriate - Laboratory and Diagnostics Result Diagrams: 02/04/19 05:25 02/04/19 05:25 Labs: Laboratory WBC 7.8 X10^3/uL (3.6-10.0) 02/04/19 05:25 RBC 2.98 X10^6/uL (3.5-5.4) L 02/04/19 05:25 Hgb 9.7 g/dL (12.0-16.0) L 02/04/19 05:25 Hct 28.1 % (36.0-47.0) L 02/04/19 05:25 MCV 94.2 fL (80.0-100.0) 02/04/19 05:25 MCH 32.6 pg (27.0-34.0) 02/04/19 05:25 MCHC 34.6 g/dL (33.0-35.0) 02/04/19 05:25 RDW 14.1 % (11.6-16.5) 02/04/19 05:25 Plt Count 531 X10^3/uL (150.0-450.0) H 02/04/19 05:25 MPV 6.8 fL (7.4-11.0) L 02/04/19 05:25 Neut % (Auto) 64.2 % (42.0-75.0) 02/04/19 05:25 Lymph % (Auto) 22.1 % (21.0-51.0) 02/04/19 05:25 [place] % (Auto) 10.0 % (0.0-13.0) 02/04/19 05:25 Eos % (Auto) 2.9 % (0.9-2.9) 02/04/19 05:25 Baso % (Auto) 0.8 % (0.2-1.0) 02/04/19 05:25 Neut # (Auto) 5.0 x10^3/uL (2.2-4.8) H 02/04/19 05:25 Lymph # (Auto) 1.7 X10^3/uL (1.3-2.9) 02/04/19 05:25 [place] # (Auto) 0.8 x10^3/uL (0.3-0.8) 02/04/19 05:25 Eos # (Auto) 0.2 x10^3/uL (0.0-0.2) 02/04/19 05:25 Baso # (Auto) 0.1 X10^3/uL (0.0-0.1) 02/04/19 05:25 Absolute Nucleated RBC 0.0 /100WBC 02/04/19 05:25 Sodium 137 mmol/L (136-145) 02/04/19 05:25 Corrected Sodium TNP 02/04/19 05:25 Potassium 4.4 mmol/L (3.5-5.1) 02/04/19 05:25 Chloride 102 mmol/L (98-107) 02/04/19 05:25 Carbon Dioxide 29.9 mmol/L (21-32) 02/04/19 05:25 BUN 17 mg/dL (7-18) 02/04/19 05:25 Creatinine 0.67 mg/dL (0.55-1.02) 02/04/19 05:25 Est GFR (MDRD) Af Amer > 60 (>60) 02/04/19 05:25 Est GFR (MDRD) Non-Af > 60 (>60) 02/04/19 05:25 Glucose 94 mg/dL (65-99) 02/04/19 05:25 Calcium 8.4 mg/dL (8.5-10.1) L 02/04/19 05:25 Corrected Calcium 9.8 mg/dL (8.5-10.1) 02/04/19 05:25 Total Bilirubin 0.70 mg/dL (0.2-1.0) 02/04/19 05:25 AST 21 Units/L (15-37) 02/04/19 05:25 ALT 11 Units/L (12-78) L 02/04/19 05:25 Alkaline Phosphatase 61 Units/L (46-116) 02/04/19 05:25 Total Protein 6.0 g/dL (6.4-8.2) L 02/04/19 05:25 Albumin 2.2 g/dL (3.4-5.0) L 02/04/19 05:25 Globulin 3.8 g/dL (2.5-4.5) 02/04/19 05:25 Albumin/Globulin Ratio 0.6 Ratio (1.1-2.1) L 02/04/19 05:25 - Plan (1) Status post revision of total hip Status: Acute Plan: PHYSICAL THERAPY, PAIN CONTROL, WOUND CARE, CONTINUE HOME MEDS, CONTINUE TO MONITOR
[2019-02-04] MEDS: LIPITOR TAB 40 MG PO SCH (21:09)
[2019-02-05] MEDS: COZAAR PO SCH (09:03)
[2019-02-05] MEDS: COLACE CAP 100 MG PO SCH ×2 (09:03→20:13)
[2019-02-05] MEDS: HEMOCYTE-PLUS PO SCH ×2 (09:03→20:12)
[2019-02-05] MEDS: ELIQUIS PO SCH ×2 (09:03→20:13)
[2019-02-05] MEDS: MILK OF MAGNESIA PO SCH ×2 (09:05→20:13)
[2019-02-05] MEDS: LIPITOR TAB 40 MG PO SCH (20:13)
[2019-02-06] MEDS: COZAAR PO SCH (08:35)
[2019-02-06] MEDS: ELIQUIS PO SCH ×2 (08:35→20:33)
[2019-02-06] MEDS: MILK OF MAGNESIA PO SCH ×2 (08:35→20:34)
[2019-02-06] MEDS: COLACE CAP 100 MG PO SCH ×2 (08:36→20:33)
[2019-02-06] MEDS: HEMOCYTE-PLUS PO SCH ×2 (08:36→20:32)
[2019-02-06] MEDS: LIPITOR TAB 40 MG PO SCH (20:32)
[2019-02-07] MEDS: COZAAR PO SCH (08:55)
[2019-02-07] MEDS: HEMOCYTE-PLUS PO SCH ×2 (08:58→20:50)
[2019-02-07] MEDS: ELIQUIS PO SCH ×2 (08:58→20:50)
[2019-02-07] MEDS: COLACE CAP 100 MG PO SCH ×2 (08:58→20:50)
[2019-02-07] MEDS: MILK OF MAGNESIA PO SCH ×2 (09:05→20:51)
[2019-02-07 10:25] LABS: BASOPHILS % (AUTO) 0.5 % (0.2-1.0); EOSINOPHILS # (AUTO) 0.1 x10^3/uL (0.0-0.2); EOSINOPHILS % (AUTO) 2.2 % (0.9-2.9); HEMATOCRIT 32.1 % (36.0-47.0); HEMOGLOBIN 10.9 g/dL (12.0-16.0); LYMPHOCYTES # (AUTO) 1.6 X10^3/uL (1.3-2.9); LYMPHOCYTES % (AUTO) 24.5 % (21.0-51.0); MEAN CORPUSCULAR HEMOGLOBIN 31.7 pg (27.0-34.0); MEAN CORPUSCULAR HGB CONC 33.9 g/dL (33.0-35.0); MEAN CORPUSCULAR VOLUME 93.4 fL (80.0-100.0); MEAN PLATELET VOLUME 6.8 fL (7.4-11.0); MONOCYTES # (AUTO) 0.6 x10^3/uL (0.3-0.8); MONOCYTES % (AUTO) 8.9 % (0.0-13.0); NEUTROPHILS # (AUTO) 4.3 x10^3/uL (2.2-4.8); NEUTROPHILS % (AUTO) 63.9 % (42.0-75.0); PLATELET COUNT 666 X10^3/uL (150.0-450.0); RED BLOOD COUNT 3.44 X10^6/uL (3.5-5.4); RED CELL DISTRIBUTION WIDTH 13.9 % (11.6-16.5); WHITE BLOOD COUNT 6.7 X10^3/uL (3.6-10.0)
[2019-02-07 10:30] LABS: ALANINE AMINOTRANSFERASE 14 Units/L (12-78); ALBUMIN 2.6 g/dL (3.4-5.0); ALKALINE PHOSPHATASE 81 Units/L (46-116); ASPARTATE AMINO TRANSFERASE 20 Units/L (15-37); BLOOD UREA NITROGEN 14 mg/dL (7-18); CALCIUM 8.8 mg/dL (8.5-10.1); CARBON DIOXIDE 28.7 mmol/L (21-32); CHLORIDE 101 mmol/L (98-107); COR CA(FOR HYPOALB) 9.9 mg/dL (8.5-10.1); SODIUM 137 mmol/L (136-145); eGFR NON BLACK RACES > 60 (>60)
[2019-02-07 10:45] LABS: BAND NEUTROPHILS % 2 % (0-10); PLATELET MORPHOLOGY COMMENT NORMAL (NORMAL)
[2019-02-07] MEDS: LIPITOR TAB 40 MG PO SCH (20:50)
[2019-02-08] MEDS: COLACE CAP 100 MG PO SCH ×2 (08:56→20:53)
[2019-02-08] MEDS: ELIQUIS PO SCH ×2 (08:56→20:53)
[2019-02-08] MEDS: HEMOCYTE-PLUS PO SCH ×2 (08:56→20:53)
[2019-02-08] MEDS: COZAAR PO SCH (08:57)
[2019-02-08] MEDS: MILK OF MAGNESIA PO SCH ×2 (09:00→20:55)
[2019-02-08] MEDS: TYLENOL 325 MG TAB PO PRN (14:32)
[2019-02-08] MEDS: LIPITOR TAB 40 MG PO SCH (20:53)
[2019-02-09] MEDS: COLACE CAP 100 MG PO SCH ×2 (08:59→21:15)
[2019-02-09] MEDS: ELIQUIS PO SCH ×2 (08:59→21:15)
[2019-02-09] MEDS: COZAAR PO SCH (08:59)
[2019-02-09] MEDS: HEMOCYTE-PLUS PO SCH ×2 (09:01→21:15)
[2019-02-09] MEDS: MILK OF MAGNESIA PO SCH ×3 (09:02→21:18)
[2019-02-09] MEDS: LIPITOR TAB 40 MG PO SCH (21:15)
[2019-02-10 05:18] LABS: BASOPHILS % (AUTO) 0.4 % (0.2-1.0); EOSINOPHILS # (AUTO) 0.2 x10^3/uL (0.0-0.2); EOSINOPHILS % (AUTO) 4.3 % (0.9-2.9); HEMATOCRIT 29.8 % (36.0-47.0); HEMOGLOBIN 10.1 g/dL (12.0-16.0); LYMPHOCYTES # (AUTO) 1.8 X10^3/uL (1.3-2.9); LYMPHOCYTES % (AUTO) 33.8 % (21.0-51.0); MEAN CORPUSCULAR HEMOGLOBIN 31.8 pg (27.0-34.0); MEAN CORPUSCULAR HGB CONC 33.9 g/dL (33.0-35.0); MEAN PLATELET VOLUME 7.3 fL (7.4-11.0); MONOCYTES # (AUTO) 0.7 x10^3/uL (0.3-0.8); MONOCYTES % (AUTO) 12.2 % (0.0-13.0); NEUTROPHILS # (AUTO) 2.7 x10^3/uL (2.2-4.8); NEUTROPHILS % (AUTO) 49.3 % (42.0-75.0); PLATELET COUNT 543 X10^3/uL (150.0-450.0); RED BLOOD COUNT 3.17 X10^6/uL (3.5-5.4); RED CELL DISTRIBUTION WIDTH 13.8 % (11.6-16.5); WHITE BLOOD COUNT 5.4 X10^3/uL (3.6-10.0)
[2019-02-10 05:32] LABS: ALANINE AMINOTRANSFERASE 9 Units/L (12-78); ALBUMIN 2.4 g/dL (3.4-5.0); ALKALINE PHOSPHATASE 79 Units/L (46-116); ASPARTATE AMINO TRANSFERASE 19 Units/L (15-37); BLOOD UREA NITROGEN 15 mg/dL (7-18); CALCIUM 8.8 mg/dL (8.5-10.1); CARBON DIOXIDE 29.2 mmol/L (21-32); CHLORIDE 103 mmol/L (98-107); COR CA(FOR HYPOALB) 10.1 mg/dL (8.5-10.1); CREATININE 0.68 mg/dL (0.55-1.02); SODIUM 138 mmol/L (136-145); TOTAL PROTEIN 6.2 g/dL (6.4-8.2); eGFR NON BLACK RACES > 60 (>60)
[2019-02-10 06:00] LABS: PLATELET MORPHOLOGY COMMENT NORMAL (NORMAL)
[2019-02-10] MEDS: ELIQUIS PO SCH ×2 (08:49→20:03)
[2019-02-10] MEDS: COZAAR PO SCH (08:50)
[2019-02-10] MEDS: HEMOCYTE-PLUS PO SCH ×2 (08:50→20:03)
[2019-02-10] MEDS: COLACE CAP 100 MG PO SCH ×2 (08:51→20:03)
[2019-02-10] MEDS: MILK OF MAGNESIA PO SCH ×3 (08:52→20:05)
[2019-02-10] MEDS: LIPITOR TAB 40 MG PO SCH (20:02)
--- NOTE | 2019-02-10 20:45 | PCM.PROG ---
Progress Note - Progress Note for Day of Date of Exam: 02/07/19 - Subjective Subjective: IS SWINGBED STATUS FOR PHYSICAL THERAPY DUE TO REVISION OF LEFT TOTAL HIP ARTHROPLASTY. TODAY, SHE IS ALERT AND ORIENTED, SITTING IN CHAIR ON MORNING ROUNDS. STAFF REPORTS THAT SHE IS AMBULATING WELL WITH ONE PERSON ASSISTANCE. SHE DENIES COMPLAINTS THIS MORNING. ON EXAMINATION, HEART IS REGULAR IN RATE AND RHYTHM. BILATERAL LUNGS ARE NOTED WITH DIMINISHED LUNG SOUNDS THROUGHOUT. ABDOMEN IS ROUND, SOFT, AND NON-TENDER WITH NORMAL BOWEL SOUNDS NOTED IN ALL QUADRANTS. THERE IS A DRESSING NOTED TO LEFT HIP. DRESSING IS DRY AND INTACT WITH NO SIGNS OR SX INFECTION NOTED. HER VITALS THIS MORNING ARE: 97.6-84-18-95%-147/63. LABS WERE OBTAINED. ABNORMAL LAB VALUES INCLUDE THE FOLLO WING: RBC 3.44, HGB 10.9, HCT 32.1, PLT COUNT 666, GLUCOSE 101, ALBUMIN 2.6. SHE HAD A FOLLOW UP APPOINMENT WITH ON 02/05. HE DID NOT GIVE ANY NEW ORDER FOR WEIGHT BEARING. WE WILL CONTINUE WITH THERAPY AND CURRENT PLAN OF CARE TODAY. OTHERWISE, WE WILL FOLLOW UP WITH AM LABS AND CONTINUE TO MONITOR. - Past Medical Family Social History Past Med/Fam/Surg Hx: No changes since H&P Allergies: Allergies No Known Allergies Allergy (Verified 12/06/18 09:29) - Review of Systems ROS: No change since H&P - Vital Signs and I&O's Vital Signs: Temperature 97.6 F Pulse Rate [Left Brachial] 92 Pulse Rate [Apical] 92 Pulse Rate 80 Respiratory Rate 18 Blood Pressure [Right Arm] 148/66 Blood Pressure [Left Arm] 116/56 Blood Pressure 182/76 O2 Sat by Pulse Oximetry 96 Intake and Output: Intake & Output 02/08/19 02/09/19 02/10/19 02/11/19 11:59 11:59 11:59 11:59 Intake Total 1000 / 1000 1260 / 1260 1080 / 1080 600 / 600 Balance 1000 / 1000 1260 / 1260 1080 / 1080 600 / 600 - Physical Exam Oriented: Normal Eyes: Normal Ear: Normal Nose: Normal Throat: Normal Respiratory: Generalized, Diminished Cardiovascular: Normal : Normal Auscultation: Bowel Sounds: Normal Tenderness: Normal Skin: Wound (LEFT HIP SURGICAL WOUND ) Musculoskeletal: Left, Hip, Leg, Swelling, Tender Psychiatric: Normal Mood Description: Calm Affect: Normal Speech Pattern: Clear, Appropriate - Laboratory and Diagnostics Result Diagrams: 02/10/19 04:53 02/10/19 04:53 Labs: Laboratory WBC 5.4 X10^3/uL (3.6-10.0) 02/10/19 04:53 RBC 3.17 X10^6/uL (3.5-5.4) L 02/10/19 04:53 Hgb 10.1 g/dL (12.0-16.0) L 02/10/19 04:53 Hct 29.8 % (36.0-47.0) L 02/10/19 04:53 MCV 94.0 fL (80.0-100.0) 02/10/19 04:53 MCH 31.8 pg (27.0-34.0) 02/10/19 04:53 MCHC 33.9 g/dL (33.0-35.0) 02/10/19 04:53 RDW 13.8 % (11.6-16.5) 02/10/19 04:53 Plt Count 543 X10^3/uL (150.0-450.0) H 02/10/19 04:53 Plt Count Comment Increased (ADEQUATE) A 02/10/19 04:53 MPV 7.3 fL (7.4-11.0) L 02/10/19 04:53 Neut % (Auto) 49.3 % (42.0-75.0) 02/10/19 04:53 Lymph % (Auto) 33.8 % (21.0-51.0) 02/10/19 04:53 [place] % (Auto) 12.2 % (0.0-13.0) 02/10/19 04:53 Eos % (Auto) 4.3 % (0.9-2.9) H 02/10/19 04:53 Baso % (Auto) 0.4 % (0.2-1.0) 02/10/19 04:53 Neut # (Auto) 2.7 x10^3/uL (2.2-4.8) 02/10/19 04:53 Lymph # (Auto) 1.8 X10^3/uL (1.3-2.9) 02/10/19 04:53 [place] # (Auto) 0.7 x10^3/uL (0.3-0.8) 02/10/19 04:53 Eos # (Auto) 0.2 x10^3/uL (0.0-0.2) 02/10/19 04:53 Baso # (Auto) 0.0 X10^3/uL (0.0-0.1) 02/10/19 04:53 Absolute Nucleated RBC 0.0 /100WBC 02/10/19 04:53 Total Counted 100 02/10/19 04:53 Neutrophils % (Manual) 55 % (39-76) 02/10/19 04:53 Band Neutrophils % 2 % (0-10) 02/07/19 10:09 Lymphocytes % (Manual) 31 % (13-43) 02/10/19 04:53 Monocytes % (Manual) 10 % (4-9) H 02/10/19 04:53 Eosinophils % (Manual) 4 % (0-6) 02/10/19 04:53 Plt Morphology Comment Normal (NORMAL) 02/10/19 04:53 RBC Morphology Normal (NORMAL) 02/10/19 04:53 Sodium 138 mmol/L (136-145) 02/10/19 04:53 Corrected Sodium TNP 02/10/19 04:53 Potassium 4.5 mmol/L (3.5-5.1) 02/10/19 04:53 Chloride 103 mmol/L (98-107) 02/10/19 04:53 Carbon Dioxide 29.2 mmol/L (21-32) 02/10/19 04:53 BUN 15 mg/dL (7-18) 02/10/19 04:53 Creatinine 0.68 mg/dL (0.55-1.02) 02/10/19 04:53 Est GFR (MDRD) Af Amer > 60 (>60) 02/10/19 04:53 Est GFR (MDRD) Non-Af > 60 (>60) 02/10/19 04:53 Glucose 93 mg/dL (65-99) 02/10/19 04:53 Calcium 8.8 mg/dL (8.5-10.1) 02/10/19 04:53 Corrected Calcium 10.1 mg/dL (8.5-10.1) 02/10/19 04:53 Total Bilirubin 0.50 mg/dL (0.2-1.0) 02/10/19 04:53 AST 19 Units/L (15-37) 02/10/19 04:53 ALT 9 Units/L (12-78) L 02/10/19 04:53 Alkaline Phosphatase 79 Units/L (46-116) 02/10/19 04:53 Total Protein 6.2 g/dL (6.4-8.2) L 02/10/19 04:53 Albumin 2.4 g/dL (3.4-5.0) L 02/10/19 04:53 Globulin 3.8 g/dL (2.5-4.5) 02/10/19 04:53 Albumin/Globulin Ratio 0.6 Ratio (1.1-2.1) L 02/10/19 04:53 - Plan (1) Status post revision of total hip Status: Acute Plan: PHYSICAL THERAPY, PAIN CONTROL, WOUND CARE, CONTINUE HOME MEDS, CONTINUE TO MONITOR
--- NOTE | 2019-02-10 20:51 | PCM.PROG ---
Progress Note - Progress Note for Day of Date of Exam: 02/10/19 - Subjective Subjective: IS SWINGBED STATUS FOR PHYSICAL THERAPY DUE TO REVISION OF LEFT TOTAL HIP ARTHROPLASTY. TODAY, SHE IS ALERT AND ORIENTED, SITTING IN CHAIR ON MORNING ROUNDS. STAFF REPORTS THAT SHE CONTINUES TO AMBULATE WELL WITH MINIMAL ASSISTANCE. SHE DENIES COMPLAINTS THIS MORNING. ON EXAMINATION, HEART IS REGULAR IN RATE AND RHYTHM. BILATERAL LUNGS ARE NOTED WITH DIMINISHED LUNG SOUNDS THROUGHOUT. ABDOMEN IS ROUND, SOFT, AND NON-TENDER WITH NORMAL BOWEL SOUNDS NOTED IN ALL QUADRANTS. THERE IS A DRESSING NOTED TO LEFT HIP. DRESSING IS DRY AND INTACT WITH NO SIGNS OR SX INFECTION NOTED. HER VITALS THIS MORNING ARE: 97.6-92-18-96%-148/99. LABS WERE OBTAINED. ABNORMAL LAB VALUES INCLUDE THE FOLLOWING: RBC 3.17, HGB 10.1, HCT 29.8, PLT COUNT 543, ALT 9, TOTAL PROTEIN 6.2, ALBUMIN 2.4. WE WILL CONTINUE WITH THERAPY AND CURRENT PLAN OF CARE TODAY. OTHERWISE, WE WILL FOLLOW UP WITH AM LABS AND CONTINUE TO MONITOR. - Past Medical Family Social History Past Med/Fam/Surg Hx: No changes since H&P Allergies: Allergies No Known Allergies Allergy (Verified 12/06/18 09:29) - Review of Systems ROS: No change since H&P - Vital Signs and I&O's Vital Signs: Temperature 97.6 F Pulse Rate [Left Brachial] 92 Pulse Rate [Apical] 92 Pulse Rate 80 Respiratory Rate 18 Blood Pressure [Right Arm] 148/66 Blood Pressure [Left Arm] 116/56 Blood Pressure 182/76 O2 Sat by Pulse Oximetry 96 Intake and Output: Intake & Output 02/08/19 02/09/19 02/10/19 02/11/19 11:59 11:59 11:59 11:59 Intake Total 1000 / 1000 1260 / 1260 1080 / 1080 600 / 600 Balance 1000 / 1000 1260 / 1260 1080 / 1080 600 / 600 - Physical Exam Oriented: Normal Eyes: Normal Ear: Normal Nose: Normal Throat: Normal Respiratory: Generalized, Diminished Cardiovascular: Normal : Normal Auscultation: Bowel Sounds: Normal Tenderness: Normal Skin: Wound (LEFT HIP SURGICAL WOUND ) Musculoskeletal: Left, Hip, Leg, Swelling, Tender Psychiatric: Normal Mood Description: Calm Affect: Normal Speech Pattern: Clear, Appropriate - Laboratory and Diagnostics Result Diagrams: 02/10/19 04:53 08/19/19 04:53 Labs: Laboratory WBC 5.4 X10^3/uL (3.6-10.0) 02/10/19 04:53 RBC 3.17 X10^6/uL (3.5-5.4) L 02/10/19 04:53 Hgb 10.1 g/dL (12.0-16.0) L 02/10/19 04:53 Hct 29.8 % (36.0-47.0) L 02/10/19 04:53 MCV 94.0 fL (80.0-100.0) 02/10/19 04:53 MCH 31.8 pg (27.0-34.0) 02/10/19 04:53 MCHC 33.9 g/dL (33.0-35.0) 02/10/19 04:53 RDW 13.8 % (11.6-16.5) 02/10/19 04:53 Plt Count 543 X10^3/uL (150.0-450.0) H 02/10/19 04:53 Plt Count Comment Increased (ADEQUATE) A 02/10/19 04:53 MPV 7.3 fL (7.4-11.0) L 02/10/19 04:53 Neut % (Auto) 49.3 % (42.0-75.0) 02/10/19 04:53 Lymph % (Auto) 33.8 % (21.0-51.0) 02/10/19 04:53 [place] % (Auto) 12.2 % (0.0-13.0) 02/10/19 04:53 Eos % (Auto) 4.3 % (0.9-2.9) H 02/10/19 04:53 Baso % (Auto) 0.4 % (0.2-1.0) 02/10/19 04:53 Neut # (Auto) 2.7 x10^3/uL (2.2-4.8) 02/10/19 04:53 Lymph # (Auto) 1.8 X10^3/uL (1.3-2.9) 02/10/19 04:53 [place] # (Auto) 0.7 x10^3/uL (0.3-0.8) 02/10/19 04:53 Eos # (Auto) 0.2 x10^3/uL (0.0-0.2) 02/10/19 04:53 Baso # (Auto) 0.0 X10^3/uL (0.0-0.1) 02/10/19 04:53 Absolute Nucleated RBC 0.0 /100WBC 02/10/19 04:53 Total Counted 100 02/10/19 04:53 Neutrophils % (Manual) 55 % (39-76) 02/10/19 04:53 Band Neutrophils % 2 % (0-10) 02/07/19 10:09 Lymphocytes % (Manual) 31 % (13-43) 02/10/19 04:53 Monocytes % (Manual) 10 % (4-9) H 02/10/19 04:53 Eosinophils % (Manual) 4 % (0-6) 02/10/19 04:53 Plt Morphology Comment Normal (NORMAL) 02/10/19 04:53 RBC Morphology Normal (NORMAL) 02/10/19 04:53 Sodium 138 mmol/L (136-145) 02/10/19 04:53 Corrected Sodium TNP 02/10/19 04:53 Potassium 4.5 mmol/L (3.5-5.1) 02/10/19 04:53 Chloride 103 mmol/L (98-107) 02/10/19 04:53 Carbon Dioxide 29.2 mmol/L (21-32) 02/10/19 04:53 BUN 15 mg/dL (7-18) 02/10/19 04:53 Creatinine 0.68 mg/dL (0.55-1.02) 02/10/19 04:53 Est GFR (MDRD) Af Amer > 60 (>60) 02/10/19 04:53 Est GFR (MDRD) Non-Af > 60 (>60) 02/10/19 04:53 Glucose 93 mg/dL (65-99) 02/10/19 04:53 Calcium 8.8 mg/dL (8.5-10.1) 02/10/19 04:53 Corrected Calcium 10.1 mg/dL (8.5-10.1) 02/10/19 04:53 Total Bilirubin 0.50 mg/dL (0.2-1.0) 02/10/19 04:53 AST 19 Units/L (15-37) 02/10/19 04:53 ALT 9 Units/L (12-78) L 02/10/19 04:53 Alkaline Phosphatase 79 Units/L (46-116) 02/10/19 04:53 Total Protein 6.2 g/dL (6.4-8.2) L 02/10/19 04:53 Albumin 2.4 g/dL (3.4-5.0) L 02/10/19 04:53 Globulin 3.8 g/dL (2.5-4.5) 02/10/19 04:53 Albumin/Globulin Ratio 0.6 Ratio (1.1-2.1) L 02/10/19 04:53 - Plan (1) Status post revision of total hip Status: Acute Plan: PHYSICAL THERAPY, PAIN CONTROL, WOUND CARE, CONTINUE HOME MEDS, CONTINUE T O MONITOR
[2019-02-11] MEDS: ELIQUIS PO SCH ×2 (09:02→20:22)
[2019-02-11] MEDS: MILK OF MAGNESIA PO SCH ×2 (09:02→20:23)
[2019-02-11] MEDS: COZAAR PO SCH (09:02)
[2019-02-11] MEDS: COLACE CAP 100 MG PO SCH ×2 (09:02→20:22)
[2019-02-11] MEDS: HEMOCYTE-PLUS PO SCH ×2 (09:02→20:22)
[2019-02-11] MEDS: LIPITOR TAB 40 MG PO SCH (20:22)
[2019-02-12] MEDS: HEMOCYTE-PLUS PO SCH ×2 (08:39→21:53)
[2019-02-12] MEDS: COZAAR PO SCH (08:39)
[2019-02-12] MEDS: MILK OF MAGNESIA PO SCH ×3 (08:39→22:48)
[2019-02-12] MEDS: COLACE CAP 100 MG PO SCH ×2 (08:40→21:53)
[2019-02-12] MEDS: ELIQUIS PO SCH ×2 (08:40→21:45)
[2019-02-12] MEDS: TYLENOL 325 MG TAB PO PRN (14:04)
[2019-02-12] MEDS: LIPITOR TAB 40 MG PO SCH (21:53)
[2019-02-13 05:42] LABS: BASOPHILS # (AUTO) 0.1 X10^3/uL (0.0-0.1); BASOPHILS % (AUTO) 1.4 % (0.2-1.0); EOSINOPHILS # (AUTO) 0.2 x10^3/uL (0.0-0.2); EOSINOPHILS % (AUTO) 4.3 % (0.9-2.9); HEMATOCRIT 29.7 % (36.0-47.0); HEMOGLOBIN 10.4 g/dL (12.0-16.0); LYMPHOCYTES # (AUTO) 1.8 X10^3/uL (1.3-2.9); LYMPHOCYTES % (AUTO) 37.1 % (21.0-51.0); MEAN CORPUSCULAR HEMOGLOBIN 32.8 pg (27.0-34.0); MEAN CORPUSCULAR HGB CONC 35.1 g/dL (33.0-35.0); MEAN CORPUSCULAR VOLUME 93.4 fL (80.0-100.0); MEAN PLATELET VOLUME 7.2 fL (7.4-11.0); MONOCYTES # (AUTO) 0.6 x10^3/uL (0.3-0.8); MONOCYTES % (AUTO) 13.2 % (0.0-13.0); NEUTROPHILS # (AUTO) 2.2 x10^3/uL (2.2-4.8); PLATELET COUNT 389 X10^3/uL (150.0-450.0); RED BLOOD COUNT 3.18 X10^6/uL (3.5-5.4); RED CELL DISTRIBUTION WIDTH 13.7 % (11.6-16.5); WHITE BLOOD COUNT 4.9 X10^3/uL (3.6-10.0)
[2019-02-13 05:48] LABS: ALANINE AMINOTRANSFERASE 10 Units/L (12-78); ALBUMIN 2.4 g/dL (3.4-5.0); ALKALINE PHOSPHATASE 82 Units/L (46-116); ASPARTATE AMINO TRANSFERASE 18 Units/L (15-37); BLOOD UREA NITROGEN 15 mg/dL (7-18); CALCIUM 8.5 mg/dL (8.5-10.1); CARBON DIOXIDE 27.5 mmol/L (21-32); CHLORIDE 104 mmol/L (98-107); COR CA(FOR HYPOALB) 9.8 mg/dL (8.5-10.1); CREATININE 0.63 mg/dL (0.55-1.02); SODIUM 139 mmol/L (136-145); TOTAL PROTEIN 6.3 g/dL (6.4-8.2); eGFR NON BLACK RACES > 60 (>60)
[2019-02-13] MEDS: COLACE CAP 100 MG PO SCH ×2 (09:02→21:13)
[2019-02-13] MEDS: COZAAR PO SCH (09:02)
[2019-02-13] MEDS: ELIQUIS PO SCH ×2 (09:02→21:13)
[2019-02-13] MEDS: HEMOCYTE-PLUS PO SCH ×2 (09:03→21:13)
[2019-02-13] MEDS: MILK OF MAGNESIA PO SCH ×2 (14:26→21:14)
[2019-02-13] MEDS: LIPITOR TAB 40 MG PO SCH (21:13)
[2019-02-14] MEDS: ELIQUIS PO SCH (09:12)
[2019-02-14] MEDS: HEMOCYTE-PLUS PO SCH (09:12)
[2019-02-14] MEDS: COZAAR PO SCH (09:12)
[2019-02-14] MEDS: COLACE CAP 100 MG PO SCH (09:12)
[2019-02-14] MEDS: MILK OF MAGNESIA PO SCH (09:59)
[2019-02-14 10:00] VITALS: BP 127/53
== END 2019-02-14 13:15 | disposition home or self-care (01) | DRG 950 ==
LOC: MED/SURG 13:58
PROVIDERS: ADMIT Internal Medicine; ATTEND Internal Medicine
DX: Z51.89 Encounter for other specified aftercare; E78.2 Mixed hyperlipidemia; I10 Essential (primary) hypertension; M25.552 Pain in left hip; K21.9 Gastro-esophageal reflux disease without esophagitis; Z79.01 Long term (current) use of anticoagulants; Z96.642 Presence of left artificial hip joint
CPT/HCPCS: 36415; 80053; 85025; 97110; 97112; 97116; 97162; 97166; 97530; 97535; J3490; S0119; S0181